=== PATIENT | female | born 1965 | race Caucasian/White ===

== ENCOUNTER 2022-05-18 18:15 | Emergency (ER) | payer OTHER ==
[2022-05-18 18:37] VITALS: BP 149/90; PULSE 75; RESP 16; TEMP 98.9; BMI 25.7
[2022-05-18 19:04] LABS: HEMOGLOBIN 13.9 G/dL (10.7-15.3); MCH 32.1 pg (25.7-33.7); MCHC 35.7 g/dl (32.0-36.0); MEAN CELL VOLUME 89.8 fl (80-96); MEAN PLT VOLUME 6.8 fl (7.5-11.1); PLATELET COUNT 412.2 10^3/uL (134-434); RBC 4.34 10^6/uL (3.60-5.2); RDW 12.8 % (11.6-15.6); WHITE BLOOD COUNT 8.9 10^3/uL (4.0-10.8)
[2022-05-18 19:15] LABS: ALBUMIN 4.4 g/dl (3.4-5.0); BILIRUBIN,TOTAL 0.6 mg/dl (0.2-1); CALCIUM 9.6 mg/dl (8.5-10); CREATININE 0.7 mg/dl (0.55-1.3); TOT PROT 7.3 g/dl (6.4-8.2)
[2022-05-19 00:08] LABS: PLATELET ESTIMATE ADEQUATE
== END 2022-05-18 19:45 | disposition home or self-care (01) ==
LOC: FER 18:15
DX: R07.9 Chest pain, unspecified (principal)
CPT/HCPCS: 36415; 71046-TC-FY; 80053; 84484; 85027; 93005; 99285-25